=== PATIENT | female | born 1965 | race Caucasian/White ===

== ENCOUNTER 2017-04-12 11:08 | Emergency (ER) | payer MEDICAID ==
[~2017-04-12] VITALS: Ht 170.2 cm; Wt 83.9 kg
[~2017-04-12 11:08] MED LIST: MELO1TAB73 PO; METH-562 PO; [UNRECOGNIZED DRUG - OTHER]
[2017-04-12 16:31] VITALS: BP 131/91
[2017-04-12] MEDS ORDERED: cefTRIAXone W LIDOCAINE 1 GM IM IM ONE (16:45)
== END 2017-04-12 17:18 | disposition home or self-care (01) ==
LOC: ER 11:08
DX: J40 Bronchitis, not specified as acute or chronic (principal); E78.5 Hyperlipidemia, unspecified; J44.9 Chronic obstructive pulmonary disease, unspecified; F17.210 Nicotine dependence, cigarettes, uncomplicated; Z82.3 Family history of stroke; Z82.49 Family history of ischemic heart disease and other diseases of the circulatory system; Z83.3 Family history of diabetes mellitus
CPT/HCPCS: 71020; 96372; 99284; J0696; J2001

== ENCOUNTER 2019-08-18 20:47 | Emergency (ER) | payer MEDICAID ==
[~2019-08-18] VITALS: Ht 160 cm; Wt 95.3 kg
[2019-08-18 21:15] VITALS: BP 111/69
[2019-08-18 21:37] LABS: Basophils # (auto) 0.1 10 ^3/uL (0-0.2); Basophils % (auto) 0.7 % (0.0-2.0); Eosinophils # (auto) 0.2 10 ^3/uL (0-0.8); Eosinophils % (auto) 1.4 % (0.0-7.0); Hematocrit 47.3 % (36.0-46.0); Hemoglobin 15.7 g/dL (12.2-16.2); Lymphocytes # (auto) 4.1 10 ^3/uL (0.4-5.4); Mean Corpuscular Hemoglobin 33.4 pg (28.0-32.0); Mean Corpuscular Hgb Conc. 33.3 g/dL (32.0-36.0); Mean Corpuscular Volume 100.3 fL (80.0-100.0); Monocytes # (auto) 0.6 10 ^3/uL (0-1.3); Monocytes % (auto) 5.8 % (0.0-12.0); Neutrophils # (auto) 5.6 10 ^3/uL (1.6-8.6); Neutrophils % (auto) 53.1 % (37.0-80.0); Nucleated Red Blood Cells % 0.3 %; Platelet Count (auto) 283 10^3/uL (140-450); Red Blood Cells 4.71 10^6/uL (4.0-5.20); Red Cell Distribution Width 13.8 % (11.8-14.3); White Blood Cell 10.5 10^3/uL (4.4-10.8)
[2019-08-18 21:51] LABS: Urine Bacteria NONE SEEN /hpf (None Seen); Urine Blood Negative /uL (Negative); Urine Specific Gravity 1.002 (1.001-1.035); Urine WBC <1 /hpf (0 - 5)
[2019-08-18 22:02] LABS: Anion Gap 9 (5-15); Blood Urea Nitrogen 7 mg/dL (7-18); Calcium 9.4 mg/dL (8.5-10.1); Carbon Dioxide 22 mmol/L (21-32); Chloride 108 mmol/L (98-107); Glucose 92 mg/dL (74-106); Potassium 3.2 mmol/L (3.5-5.1); Sodium 139 mmol/L (136-145)
[2019-08-18 22:07] LABS: Amphetamine Screen, Urine NEGATIVE (NEGATIVE); Barbiturate Scree,Urine NEGATIVE (NEGATIVE); Benzodiazephine Screen, Urine NEGATIVE (NEGATIVE); Cannabinoid Screen, Urine NEGATIVE (NEGATIVE); Cocaine Screen, Urine NEGATIVE (NEGATIVE); Opiate Scree,Urine NEGATIVE (NEGATIVE); Phencyclidine Screen, Urine NEGATIVE (NEGATIVE)
[2019-08-18 22:08] LABS: Alanine Aminotransferase 31 U/L (13-56); Alkaline Phosphatase 73 U/L (45-117); Aspartate Aminotransferase 32 U/L (15-37); BUN/Creatinine Ratio 7.7; Bilirubin, Total 0.3 mg/dL (0.2-1.0); GFR African American 83 mL/min; GFR Non-African American 69 mL/min
[2019-08-18] MEDS ORDERED: SODIUM CHLORIDE 0.9% 1,000 ML IV ONE (22:30)
[2019-08-18] MEDS ORDERED: POTASSIUM CHL 20 Meq TABLET PO ONE (22:45)
== END 2019-08-19 00:01 | disposition left against medical advice (07) ==
LOC: EDBD 20:47 → ER 20:50
DX: S09.8XXA Other specified injuries of head, initial encounter (principal); F10.129 Alcohol abuse with intoxication, unspecified; E87.6 Hypokalemia; J44.9 Chronic obstructive pulmonary disease, unspecified; E78.5 Hyperlipidemia, unspecified; F17.210 Nicotine dependence, cigarettes, uncomplicated; R41.82 Altered mental status, unspecified; Z98.51 Tubal ligation status; Y90.9 Presence of alcohol in blood, level not specified; W07.XXXA Fall from chair, initial encounter; Y93.89 Activity, other specified; Y92.89 Other specified places as the place of occurrence of the external cause; Y99.8 Other external cause status
CPT/HCPCS: 36415; 70450; 80053; 80307; 80320; 81001; 84484; 85025